=== PATIENT | male | born 1960 | race Caucasian/White ===

== ENCOUNTER 2017-03-06 01:51 | Emergency (ER) | payer SELFPAY ==
[2017-03-06 02:13] VITALS: BMI 63.6
[2017-03-06] MEDS ORDERED: CLOPIDOGREL BISULFATE 300 MG TABLET PO ONE (02:58)
--- NOTE | 2017-03-06 02:58 | PDOC ---
History of Present Illness - General History Source: Patient Exam Limitations: No Limitations - History of Present Illness Initial Comments: 03/06/17 03:48 The patient is a 57-year-old male BIBA with no significant past medical history , and presents to the emergency department with chest pain starting at 10pm tonight. He reports the chest pain is located in the midsternal region, radiating to the back, and he characterizes the pain as a constant heavy ache. He notes the chest pain is worsened with walking and activity. He states the pain has been intermittent for the last 10 days, but worsened significantly tonight while at work. He states he took two 81 mg aspirins before coming to the ER. He states he does not have a PCP and does not know of any medical problems. The patient denies shortness of breath, headache and dizziness. The patient denies fever, chills, nausea, vomit, diarrhea and constipation. The patient denies dysuria, frequency, urgency and hematuria. Allergies: NKDA Past Surgical History: None reported Social History: No toxic habits reported Family PMHx: father had heart disease <Shital Schwartz - Last Filed: 03/06/17 03:48> <Yuliet Waggoner - Last Filed: 03/06/17 06:42> - General Chief Complaint: Chest Pain Stated Complaint: CHEST PAIN Time Seen by Provider: 03/06/17 01:56 Past History <Shital Schwartz - Last Filed: 03/06/17 03:48> - Psycho/Social/Smoking Cessation Hx Suicidal Ideation: No Smoking History: Never smoked Have you smoked in the past 12 months: No Hx Alcohol Use: No Drug/Substance Use Hx: No <Yuliet Waggoner - Last Filed: 03/06/17 06:42> - Past Medical History Allergies/Adverse Reactions: Allergies Allergy/AdvReac Type Severity Reaction Status Date / Time No Known Allergies Allergy Verified 03/06/17 02:38 Home Medications: Ambulatory Orders NK [No Known Home Medication] 03/06/17 Review of Systems - Review of Systems Able to Perform ROS?: Yes Comments:: 03/06/17 03:48 CONSTITUTIONAL: Absent: fever, chills, diaphoresis, generalized weakness, malaise, loss of appetite HEENT: Absent: rhinorrhea, nasal congestion, throat pain, throat swelling, difficulty swallowing, mouth swelling, ear pain, eye pain, visual changes CARDIOVASCULAR: Present: (+) chest pain Absent: syncope, palpitations, irregular heart rate, lightheadedness, peripheral edema RESPIRATORY: Absent: cough, shortness of breath, dyspnea with exertion, orthopnea, wheezing, stridor, hemoptysis GASTROINTESTINAL: Absent: abdominal pain, abdominal distension, nausea, vomiting, diarrhea, constipation, melena, hematochezia GENITOURINARY: Absent: dysuria, frequency, urgency, hesitancy, hematuria, flank pain, genital pain MUSCULOSKELETAL: Absent: myalgia, arthralgia, joint swelling SKIN: Absent: rash, itching, pallor HEMATOLOGIC/IMMUNOLOGIC: Absent: easy bleeding, easy bruising, lymphadenopathy, frequent infections ENDOCRINE: Absent: unexplained weight gain, unexplained weight loss, heat intolerance, cold intolerance NEUROLOGIC: Absent: headache, focal weakness or paresthesias, dizziness, unsteady gait, seizure, mental status changes, bladder or bowel incontinence PSYCHIATRIC: Absent: anxiety, depression, suicidal or homicidal ideation, hallucinations. <Shital Schwartz - Last Filed: 03/06/17 03:48> *Physical Exam - Vital Signs Last Vital Signs Temp Pulse Resp BP Pulse Ox 97.3 F L 72 18 168/90 100 03/06/17 02:07 03/06/17 03:27 03/06/17 03:27 03/06/17 03:27 03/06/17 03:27 - Physical Exam Comments: 03/06/17 03:48 GENERAL: Well developed, well nourished. Awake and alert. No acute distress. HEENT: Normocephalic, atraumatic. PERRLA, EOMI. No conjunctival pallor. Sclera are non- icteric. Moist mucous membranes. Oropharynx is clear. NECK: Supple. Full ROM. No JVD. Carotid pulses 2+ and symmetric, without bruits. No thyromegaly. No lymphadenopathy. CARDIOVASCULAR: Regular rate and rhythm. No murmurs, rubs, or gallops. Distal pulses are 2+ and symmetric. PULMONARY: No evidence of respiratory distress. Lungs clear to auscultation bilaterally. No wheezing, rales or rhonchi. ABDOMINAL: Soft. Non-tender. Non-distended. No rebound or guarding. No organomegaly. Normoactive bowel sounds. MUSCULOSKELETAL Normal range of motion at all joints. No bony deformities or tenderness. No CVA tenderness. EXTREMITIES: No cyanosis. No clubbing. No edema. No calf tenderness. SKIN: Warm and dry. Normal capillary refill. No rashes. No jaundice. NEUROLOGICAL: Alert, awake, appropriate. Cranial nerves 2-12 intact. No deficits to light touch and temperature in face, upper extremities and lower extremities. No motor deficits in the in face, upper extremities and lower extremities. Normoreflexic in the upper and lower extremities. Normal speech. Toes are down- going bilaterally. PSYCHIATRIC: Cooperative. Good eye contact. Appropriate mood and affect. <Shital Schwartz - Last Filed: 03/06/17 03:48> - Vital Signs Last Vital Signs Temp Pulse Resp BP Pulse Ox 97.3 F L 70 18 148/89 98 03/06/17 02:07 03/06/17 02:07 03/06/17 02:07 03/06/17 02:07 03/06/17 02:07 <Yuliet Waggoner - Last Filed: 03/06/17 06:42> ED Treatment Course - LABORATORY CBC & Chemistry Diagram: 03/06/17 03:00 03/06/17 03:00 - ADDITIONAL ORDERS Additional order review: Laboratory Results 03/06/17 03/06/17 03:00 03:00 INR 1.10 PTT (Actin FS) 34.3 Sodium 137 Potassium 4.7 Chloride 98 Carbon Dioxide 30 Anion Gap 9 BUN 14 Creatinine 0.8 Creat Clearance w eGFR > 60 Random Glucose 204 H Calcium 9.0 Total Bilirubin 0.6 AST 26 ALT 32 Alkaline Phosphatase 64 Creatine Kinase 151 Creatine Kinase Index 2.6 CK-MB (CK-2) 4.006 H Troponin I 0.31 H Total Protein 7.3 Albumin 3.8 03/06/17 03:00 RBC 5.72 H MCV 81.2 MCHC 32.8 RDW 13.7 MPV 8.1 Neutrophils % 87.9 H Lymphocytes % 8.6 Monocytes % 2.9 L Eosinophils % 0.2 Basophils % 0.4 - Medications Given in the ED: ED Medications Discontinued Medications Generic Name Dose Route Start Last Admin Trade Name Freq PRN Reason Stop Dose Admin Aspirin 162 mg 03/06/17 02:59 03/06/17 03:10 Asa - PO 03/06/17 03:00 162 mg ONCE ONE Administration Clopidogrel Bisulfate 600 mg 03/06/17 02:58 03/06/17 03:10 Plavix - PO 03/06/17 02:59 600 mg ONCE ONE Administration Morphine Sulfate 2 mg 03/06/17 03:14 03/06/17 03:22 Morphine Injection - IVPUSH 03/06/17 03:15 2 mg ONCE ONE Administration <Shital Schwartz - Last Filed: 03/06/17 03:48> - LABORATORY CBC & Chemistry Diagram: 03/06/17 03:00 03/06/17 03:00 <Yuliet Waggoner - Last Filed: 03/06/17 06:42> Medical Decision Making - Medical Decision Making 03/06/17 03:18 Pt has BP 168 systolic in bilateral arms; he has CP that also radiates to the back. He took 2 asa 81mg before coming to the ER. He never takes any meds and he has no medical probs; but he has no PMD. Pt was at work when the pain started pain is worse with movement and activity. First EKG shows inferior ST elevations. He got 162mg asa, 600mg plavix; heparin 5000 bolus; 1inch nitro paste and 1SLNTG. STEMI code called; pt will be referred to [facility]. Cards fellow Sanju wants pt to go to the ER. Troponin positive; fellow is aware. <Yuliet Waggoner - Last Filed: 03/06/17 06:42> *DC/Admit/Observation/Transfer - Attestations Scribe Attestion: 03/06/17 03:48 Documentation prepared by Shital Schwartz, acting as emergency medical technician for Yuliet Waggoner MD. <Shital Schwartz - Last Filed: 03/06/17 03:48> - Transfer to Acute Care Facility Receiving Facility: [facility]. <Yuliet Waggoner - Last Filed: 03/06/17 06:42> Diagnosis at time of Disposition: STEMI (ST elevation myocardial infarction) - Discharge Dispostion Disposition: TRANSFER ACUTE CARE/OTHER HOSP Condition at time of disposition: Guarded
[2017-03-06] MEDS ORDERED: ASPIRIN 81 MG CHEWABLE TABLETS PO ONE (02:59)
[2017-03-06] MEDS ORDERED: HEPARIN NA (PORCINE) 5,000 UNITS/ML 1ML VIAL IVPUSH PRN (02:59)
[2017-03-06] MEDS ORDERED: HEPARIN INFUSION - 500 ML IVPB SCH (03:00)
[2017-03-06] MEDS ORDERED: ASPIRIN COATED 81 MG TABLET.EC ONE (03:04)
[2017-03-06] MEDS ORDERED: CLOPIDOGREL BISULFATE 300 MG TABLET ONE (03:04)
[2017-03-06] MEDS ORDERED: HEPARIN INFUSION - 500 ML IVPB ONE (03:05)
[2017-03-06] MEDS ORDERED: HEPARIN NA (PORCINE) 5,000 UNITS/ML 1ML VIAL ONE (03:05)
[2017-03-06 03:13] LABS: BASOPHIL 0.4 % (0-2.0); EOSINOPHIL 0.2 % (0-4.5); MCH 26.6 pg (25.7-33.7); MCHC 32.8 g/dl (32.0-35.9); MEAN CELL VOLUME 81.2 fl (80-96); MEAN PLT VOLUME 8.1 fl (7.5-11.1); NEUTROPHILS 87.9 % (42.8-82.8); PLATELET COUNT 275 K/MM3 (134-434); RDW 13.7 % (11.9-15.9)
[2017-03-06] MEDS ORDERED: morphine CARPU-JECT 2 MG/1 ML DISP.SYRIN IVPUSH ONE ×2 (03:14→03:57)
[2017-03-06] MEDS ORDERED: morphine CARPU-JECT 2 MG/1 ML DISP.SYRIN ONE (03:18)
[2017-03-06 03:30] LABS: INR 1.1 (0.82-1.09); PROTHROMBIN TIME (PATIENT) 12.1 SEC (9.98-11.88)
[2017-03-06 03:32] LABS: ACTIVATED PTT 34.3 SECONDS (26.9-34.4)
[2017-03-06 03:40] LABS: ALBUMIN 3.8 g/dl (3.4-5.0); ANION GAP 9 (8-16); BILIRUBIN,TOTAL 0.6 mg/dL (0.2-1.0); CO2 30 mmol/L (21-32); CREATININE 0.8 mg/dL (0.7-1.3); GLUCOSE,RANDOM 204 mg/dL (74-106); SGPT/ALT 32 U/L (12-78); TOT PROT 7.3 g/dl (6.4-8.2)
[2017-03-06 03:42] LABS: ALK PHOS 64 U/L (45-117); TROPONIN I 0.31 ng/ml (0.00-0.05)
[2017-03-06 03:43] LABS: CPK 151 IU/L (39-308); SGOT/AST 26 U/L (15-37)
[2017-03-06 03:56] VITALS: BP 141/70; PULSE 75
[2017-03-06] MEDS ORDERED: morphine CARPU-JECT 4 MG/1 ML DISP.SYRIN ONE (03:58)
[2017-03-06 04:10] VITALS: TEMP 97.8
--- NOTE | 2017-03-06 22:11 | EKG ---
Test Reason : Blood Pressure : / mmHG Vent. Rate : 067 BPM Atrial Rate : 067 BPM P-R Int : 140 ms QRS Dur : 078 ms QT Int : 414 ms P-R-T Axes : 063 079 021 degrees QTc Int : 437 ms NORMAL SINUS RHYTHM CANNOT RULE OUT SEPTAL INFARCT (CITED ON OR BEFORE 06-MAR-2017) ABNORMAL ECG WHEN COMPARED WITH ECG OF 06-MAR-2017 01:57, NO SIGNIFICANT CHANGE WAS FOUND Confirmed by PETR REYNOSO MD ([id number]) on 03/06/2017 10:11:00 PM Referred By: Confirmed By:PETR REYNOSO MD
--- NOTE | 2017-03-06 22:13 | EKG ---
Test Reason : Blood Pressure : / mmHG Vent. Rate : 067 BPM Atrial Rate : 067 BPM P-R Int : 144 ms QRS Dur : 086 ms QT Int : 410 ms P-R-T Axes : 060 071 049 degrees QTc Int : 433 ms NORMAL SINUS RHYTHM ST SEGMENT ELEVATION IN INFERIOR LEAD, POSSIBLE STEMI, CLINICAL CORRELATION IS RECOMMENDED CANNOT RULE OUT SEPTAL INFARCT , AGE UNDETERMINED ABNORMAL ECG WHEN COMPARED WITH ECG OF 25-DEC-2006 07:47, ST SEGMENT IN INFERIOR LEAD APPEARS ELEVATED Confirmed by PETR REYNOSO MD ([id number]) on 03/06/2017 10:12:39 PM Referred By: Confirmed By:PETR REYNOSO MD
--- NOTE | 2017-03-09 12:21 | EKG ---
Test Reason : Blood Pressure : / mmHG Vent. Rate : 059 BPM Atrial Rate : 059 BPM P-R Int : 140 ms QRS Dur : 076 ms QT Int : 426 ms P-R-T Axes : 000 114 163 degrees QTc Int : 421 ms SINUS BRADYCARDIA INFERIOR INFARCT , AGE UNDETERMINED ANTEROLATERAL INFARCT (CITED ON OR BEFORE 06-MAR-2017) ABNORMAL ECG WHEN COMPARED WITH ECG OF 06-MAR-2017 02:59, QRS AXIS SHIFTED RIGHT INFERIOR INFARCT IS NOW PRESENT SERIAL CHANGES OF ANTERIOR INFARCT PRESENT Confirmed by KEITH CLEMENTS MD ([id number]) on 03/09/2017 12:20:56 PM Referred By: Confirmed By:KEITH CLEMENTS MD
== END 2017-03-06 04:09 | disposition short-term general hospital (02) ==
LOC: JER 01:51
PROC: 3E033GC Introduction of Other Therapeutic Substance into Peripheral Vein, Percutaneous Approach (ICD-10-PCS; principal; 2017-03-06)
PROC: 3E033GC Introduction of Other Therapeutic Substance into Peripheral Vein, Percutaneous Approach (ICD-10-PCS; 2017-03-06)
PROC: 3E033NZ Introduction of Analgesics, Hypnotics, Sedatives into Peripheral Vein, Percutaneous Approach (ICD-10-PCS; 2017-03-06)
PROC: 3E033NZ Introduction of Analgesics, Hypnotics, Sedatives into Peripheral Vein, Percutaneous Approach (ICD-10-PCS; 2017-03-06)
DX: I21.19 ST elevation (STEMI) myocardial infarction involving other coronary artery of inferior wall (principal)
CPT/HCPCS: 36415; 71010-TC; 80053; 82553; 84484; 85025; 85610; 85730; 93005; 93010; 99285-25; J1644